=== PATIENT | male | born 1960 | race African-American/Black ===

== ENCOUNTER 2019-10-04 10:45 | Emergency (ER) | payer MEDICAID, OTHER ==
[~2019-10-04] VITALS: Ht 180.3 cm; Wt 99.0 kg
[2019-10-04 11:20] VITALS: BP 129/95
[2019-10-04] MEDS ORDERED: IBUPROFEN 600MG TABLET PO ONE (12:15)
== END 2019-10-04 13:35 | disposition home or self-care (01) ==
LOC: ER 10:45
DX: M79.642 Pain in left hand (principal); M79.641 Pain in right hand; I10 Essential (primary) hypertension; Z91.011 Allergy to milk products; Z91.09 Other allergy status, other than to drugs and biological substances
CPT/HCPCS: 29125; 73110; 73130; 82962; 99283